=== PATIENT | male | born 1995 | race Caucasian/White ===

== ENCOUNTER 2023-09-04 14:48 | Inpatient (IN) ==
[2023-09-04] MEDS: LACTATED RINGERS 1,000 ML IV ONE ×2 (15:15→15:50)
[2023-09-04] MEDS: ONDANSETRON 4 MG/2 ML VIAL IV ONE (15:15)
[2023-09-04] MEDS: IPRATROPIUM/ALBUTEROL 3 ML AMPUL.NEB NEB ONE ×3 (15:25→16:09)
[2023-09-04 15:33] LABS: Basophils # (Auto) 0.04 K/mcL (0.00-0.30); Basophils % (Auto) 0.2 % (0.0-2.0); Eosinophils # (Auto) 0.41 K/mcL (0.00-0.70); Eosinophils % (Auto) 2.2 % (0.0-7.0); Hematocrit 50.1 % (40.1-51.0); Hemoglobin 15.5 g/dL (13.7-17.5); Lymphocytes # (Auto) 5.91 K/mcL (1.50-4.80); Lymphocytes % (Auto) 32.4 % (15.5-49.0); Mean Cell Volume 92.6 fL (80.0-100.0); Mean Corpuscular HGB Conc 30.9 g/dL (31.0-36.0); Mean Platelet Volume 9.6 fL (8.8-12.5); Monocytes # (Auto) 0.71 K/mcL (0.10-0.90); Monocytes % (Auto) 3.9 % (1.0-12.0); Neutrophils % (Auto) 57.1 % (38.0-78.0); Platelet Count 370 K/mcL (140-440); RBC 5.41 M/mcL (4.63-6.08); Red Cell Distribution Width 13.9 % (11.5-14.5); WBC 18.2 K/mcL (4.5-11.0)
[2023-09-04 15:41] LABS: Alcohol, Blood < 10.1 mg/dL; Alcohol,Blood < 0.010 gm/dL (<0.010)
[2023-09-04 15:43] LABS: ALT/SGPT 60 U/L (<40); AST/SGOT 75 U/L (<40); Albumin 4.5 gm/dL (3.2-5.2); Albumin/Globulin Ratio 1.6 (1.0-2.3); Alkaline Phosphatase 118 U/L (39-117); Bilirubin,Total 0.3 mg/dL (0.1-1.0); Blood Urea Nitrogen 17 mg/dL (6-20); Carbon Dioxide 19 mmol/L (22-30); Chloride 97 mmol/L (96-108); Globulin 2.9 gm/dL (2.2-3.7); Glomerular Filtration Rate 61; Glucose 425 mg/dL (70-105)
[2023-09-04 16:09] LABS: Acetaminophen < 5.0 ug/mL; Salicylate < 0.3 mg/dL
[2023-09-04 17:23] LABS: Blood Urea Nitrogen 18 mg/dL (6-20); Calcium 8.7 mg/dL (8.6-10.4); Carbon Dioxide 22 mmol/L (22-30); Chloride 103 mmol/L (96-108); Glomerular Filtration Rate 89; Glucose 138 mg/dL (70-105)
[2023-09-04 17:43] LABS: Amphetamine Screen,Urine Suspect positive; Barbiturate Screen,Urine Suspect positive; Benzodiazepines Screen,Urine None detected; Cannabinoid Screen,Urine None detected; Cocaine Screen,Urine None detected; Opiate Screen,Urine None detected; Oxycodone, Urine Screen None detected; Phencyclidine Screen,Urine None detected
[2023-09-04 18:49] LABS: Creatine Kinase 261 U/L (24-195)
[2023-09-04] MEDS ORDERED: LORazepam 2 MG/ML VIAL IV PRN (19:19)
[2023-09-04] MEDS ORDERED: POTASSIUM CHLORIDE 40 MEQ in DEXTROSE 5% IN WATER 500 ML IV PRN (19:19)
[2023-09-04] MEDS ORDERED: ONDANSETRON 4 MG/2 ML VIAL IV PRN (19:19)
[2023-09-04] MEDS ORDERED: POTASSIUM CHLORIDE 20 MEQ TABLET PO PRN ×2 (19:19)
[2023-09-04] MEDS ORDERED: SENNOSIDES 1 TABLET PO PRN (19:19)
[2023-09-04] MEDS ORDERED: IPRATROPIUM/ALBUTEROL 3 ML AMPUL.NEB NEB PRN (19:19)
[2023-09-04] MEDS ORDERED: POLYETHYLENE GLYCOL 3350 17 GM PACKET PO PRN (19:19)
[2023-09-04] MEDS ORDERED: MAGNESIUM SULFATE 2 GM/50 ML BAG IV PRN (19:19)
[2023-09-04] MEDS ORDERED: ACETAMINOPHEN 325 MG TABLET PO PRN (19:19)
[2023-09-04] MEDS ORDERED: NALOXONE HCL 0.4 MG/ML VIAL IV PRN (19:19)
[2023-09-04] MEDS ORDERED: hydrOXYzine 25 MG TABLET PO PRN (19:23)
[2023-09-04] MEDS: FAMOTIDINE/PF 20 MG/2 ML VIAL IV SCH (20:22)
[2023-09-04] MEDS: 0.9 % SODIUM CHLORIDE 10 ML SYRINGE IV SCH (20:23)
[2023-09-04 21:25] LABS: Band Neutrophils % 6 % (0-10); Eosinophils % (Manual) 2 % (0-7); Hypochromasia 1+ (None Seen); Lymphocytes % 34 % (15-49); Monocytes % (Manual) 3 % (1-12); Platelet Estimate NORMAL (Normal); RBC Morphology ABNORMAL (Normal); Segmented Neutrophils % 55 % (38-78)
[2023-09-04] MEDS: VANCOMYCIN PER PHARMACY IV ONE (21:40)
[2023-09-04] MEDS: PIPERACILLIN SODIUM/TAZOBACTAM 3.375 GM in DEXTROSE 5% IN WATER 100 ML IV SCH (21:54)
[2023-09-04] MEDS: VANCOMYCIN 1,500 MG in 0.9 % SODIUM CHLORIDE 500 ML IV SCH (21:55)
[2023-09-05 06:26] LABS: ALT/SGPT 38 U/L (<40); AST/SGOT 35 U/L (<40); Albumin 3.7 gm/dL (3.2-5.2); Albumin/Globulin Ratio 1.8 (1.0-2.3); Alkaline Phosphatase 85 U/L (39-117); Bilirubin,Direct < 0.2 mg/dL (0-0.3); Bilirubin,Total 0.5 mg/dL (0.1-1.0); Blood Urea Nitrogen 16 mg/dL (6-20); Calcium 8.8 mg/dL (8.6-10.4); Carbon Dioxide 24 mmol/L (22-30); Chloride 103 mmol/L (96-108); Globulin 2.1 gm/dL (2.2-3.7); Glomerular Filtration Rate 119; Glucose 87 mg/dL (70-105); Lactate Dehydrogenase 172 U/L (135-225); Phosphorous 2.8 mg/dL (2.5-4.5); Triglycerides 93 mg/dL (<150); Uric Acid 6.3 mg/dL (2.5-8.0)
[2023-09-05 06:34] LABS: Basophils # (Auto) 0.02 K/mcL (0.00-0.30); Basophils % (Auto) 0.2 % (0.0-2.0); Eosinophils # (Auto) 0.17 K/mcL (0.00-0.70); Eosinophils % (Auto) 1.3 % (0.0-7.0); Hematocrit 40.4 % (40.1-51.0); Hemoglobin 12.8 g/dL (13.7-17.5); Lymphocytes # (Auto) 2.74 K/mcL (1.50-4.80); Lymphocytes % (Auto) 20.8 % (15.5-49.0); Mean Corpuscular HGB Conc 31.7 g/dL (31.0-36.0); Mean Platelet Volume 9.3 fL (8.8-12.5); Monocytes # (Auto) 1.06 K/mcL (0.10-0.90); Monocytes % (Auto) 8.1 % (1.0-12.0); Neutrophils % (Auto) 69.4 % (38.0-78.0); Platelet Count 253 K/mcL (140-440); RBC 4.44 M/mcL (4.63-6.08); Red Cell Distribution Width 14.2 % (11.5-14.5); WBC 13.2 K/mcL (4.5-11.0)
[2023-09-05] MEDS ORDERED: VANCOMYCIN PER PHARMACY IV SCH (06:45)
[2023-09-05] MEDS: ENOXAPARIN 40 MG/0.4 ML SYRINGE SQ SCH (08:29)
[2023-09-05] MEDS: traZODone HCL 50 MG TABLET PO SCH (08:29)
[2023-09-05] MEDS ORDERED: QUEtiapine 100 MG TABLET PO SCH (21:00)
[2023-09-11 20:08] LABS: Amphetamine Screen Positive
== END 2023-09-05 11:54 | disposition home or self-care (01) | DRG 917 ==
LOC: ED 14:48 → ICU 19:17
PROVIDERS: ADMIT Internal Medicine; ATTEND Internal Medicine